=== PATIENT | female | born 1985 | race Caucasian/White ===

== ENCOUNTER 2021-06-28 11:09 | Emergency (ER) | payer MEDICARE, MEDICAID, SELFPAY ==
--- NOTE | 2021-06-28 | ECG_ITS ---
Test Reason : CHEST PAIN Blood Pressure : / mmHG Vent. Rate : 065 BPM Atrial Rate : 065 BPM P-R Int : 146 ms QRS Dur : 068 ms QT Int : 386 ms P-R-T Axes : 046 034 046 degrees QTc Int : 401 ms Normal sinus rhythm with sinus arrhythmia Septal infarct , age undetermined Abnormal ECG When compared with ECG of 09-DEC-2011 20:48, Septal infarct is now Present Referred By: Generic ED Physician Electronically Signed By:ZHANNA STEARNS MD
--- NOTE | ~2021-06-28 | XR_ITS ---
EXAMINATION: XR CHEST CLINICAL INFORMATION: Cough. Pneumonia. COMPARISON: None TECHNIQUE: Frontal view of the chest was obtained. FINDINGS: The lungs are well expanded. There is no focal consolidation, edema, or effusion. No pneumothorax. The cardiomediastinal silhouette is within normal limits. No acute osseous abnormality. XR/XR chest 1V IMPRESSION: Clear lungs.
[2021-06-28 11:32] VITALS: BP 122/83; PULSE 77; RESP 17; TEMP 36.9; O2SAT 98; BMI 27.6
--- NOTE | 2021-06-28 11:40 | ED.CHESTPAIN ---
HPI - Chest Pain General Chief Complaint: Chest Pain Stated Complaint: chest pain 4 days Time Seen by Provider: 06/28/21 11:17 Source: patient Mode of arrival: ambulatory Limitations: no limitations History of Present Illness HPI narrative: 35-year-old female presents to ED for chest pain for the past 4 days. Patient states having coughing with mucus and chills with the chest pain after being exposed to her boyfriend's daughter who was sick before her. Patient denies any leg swelling, calf pain, coughing up blood, pleuritic chest pain, shortness of breath on exertion, recent travel, control use, recent surgery, or any history of blood clots. Patient has been clean without drug use for the past 10 years. Patient states she wanted to get evaluated. Related Data Previous Rx's Medication Instructions Recorded albuterol sulfate 90 mcg/actuation 2 puff INHALATION Q6H PRN #8.5 g 06/28/21 aerosol inhaler prednisone 20 mg tablet 40 mg PO DAILY 5 Days #10 tab 06/28/21 Allergies Allergy/AdvReac Type Severity Reaction Status Date / Time From NOVOCAIN Allergy Unknown ANAPHYLAXIS Uncoded 11/11/19 15:55 Review of Systems Review of Systems: Cough, chills, chest pain Yes all other systems are reviewed and are negative [facility] Past Medical History Medical History (Updated 06/28/21 @ 13:15 by PRECIOUS Boateng) Asthma Pre-eclampsia Social History Social History Advance Directives: No Advance Directives Information Provided: No Physical Exam Vital Signs: Vital Signs: Last Vital Signs Temp 98.5 F 06/28/21 11:32 Pulse 84 06/28/21 13:51 Resp 16 06/28/21 13:51 BP 123/70 06/28/21 13:51 Pulse Ox 98 06/28/21 13:51 BMI result Body Mass Index 27.6 Const: General: cooperative, healthy appearing, comfortable, no acute distress, well developed, alert and awake Orientation/consciousness: patient oriented x3 HEENT: Head: Yes normal to inspection, Yes No palpable skull fracture present, Yes normocephalic, Yes atraumatic and No abrasion Eyes: General: appearance normal, both eyes and all related structures Neck: Neck: Yes normal visual inspection, Yes full ROM, Yes no lymphadenopathy, Yes no meningeal signs, Yes trachea midline, Yes supple, No anterior neck swelling and No tender Chest: Chest palpation & inspection: normal inspection of the chest and normal palpation of entire chest wall Resp: Effort & Inspection: normal respiratory effort and able to speak in complete sentences Auscultation: clear to auscultation bilaterally Cardio: Jugular venous distension: no JVD Heart sounds: S1 normal heart sound present and S2 normal heart sound present GI: Inspection: Yes normal to inspection and No abdominal wall ecchymosis Palpation (GI): Soft to palpation, not firm, nontender, no guarding and not rigid : General: No CVA tenderness and Yes no CVA tenderness Back/Spine/Pelvis: Back: no CVA tenderness, No CVA tenderness and No back tenderness Skin: General skin exam: no rashes or lesions noted and elasticity normal Neuro: General: patient oriented x3, gait normal, no meningeal signs, no focal motor deficits and CN's II-XI intact bilaterally Cranial nerves: Yes CN's II-XII intact bilaterally Extrem: Other: Lower extremities negative for swelling, pitting edema, or calf tenderness. General: Yes normal to inspection and Yes full ROM Psych: Appearance: grossly normal and well ket Course Course Course Narrative: Patient well-appearing. History physical exam likely mild URI but due to patient stating father had heart attack in 40s patient will have EKG cardiac evaluation. Not suspecting PE. SARS and COVID swab ordered. Patient has reproducible chest pain most likely costochondritis will wait for EKG troponin results. Albuterol prednisone ordered. Reevaluation(s) Reevaluation #1: EKG negative STEMI. Chest x-ray negative pneumonia and negative for signs of CHF. COVID influenza A negative. Troponin negative. Diagnosis URI. Patient is safe for discharge. Heart score 0. Perc score is 0. Time: 13:08 MDM - Chest Pain MDM Narrative Medical decision making narrative: URI. Asthma Lab Data Result diagrams: 06/28/21 11:42 06/28/21 11:42 Labs: Lab Results 06/28/21 06/28/21 06/28/21 Range/Units 11:42 11:42 11:42 WBC 9.8 (4.8-10.8) X10*3/uL RBC 4.59 (4.20-5.50) X10*6/uL Hgb 13.5 (12.0-16.0) g/dl Hct 40.4 (37.0-47.0) % MCV 88.0 (80.0-98.0) fL MCH 29.4 (27.0-33.0) pg MCHC 33.4 (31.0-35.0) g/dl RDW 12.6 (11.0-16.0) % Plt Count 225 (160-400) X10*3/uL MPV 9.6 (9.4-12.3) fL Immature Gran % (Auto) 0.2 (0.0-0.4) % Neut % (Auto) 46.2 (45-73) % Lymph % (Auto) 43.2 H (20-40) % Emery % (Auto) 4.5 (2-11) % Eos % (Auto) 5.3 H (0-4) % Baso % (Auto) 0.6 (0-2) % Lymph # (Auto) 4.2 (1.2-4.9) X10*3/uL Emery # (Auto) 0.4 (0.1-1.2) X10*3/uL Eos # (Auto) 0.5 H (0.0-0.4) X10*3/uL Baso # (Auto) 0.1 (0.0-0.2) X10*3/uL Abs Immat Gran (auto) 0.02 (0.00-0.03) X10*3/uL Absolute Neuts (auto) 4.5 (2.0-8.3) x10*3/uL Absolute Nucleated RBC 0.000 (0.0-0.012) X10*3/uL Nucleated RBC % (auto) 0.0 (0.0-0.2) /100WBC PT 12.3 (9.9-13.0) SEC INR 1.1 (0.9-1.1) APTT 35.2 (24.1-38.0) SEC Sodium 137 (135-145) mmol/L Potassium 4.1 (3.3-5.1) mmol/L Chloride 109 H (96-108) mmol/L Carbon Dioxide 20 L (22-29) mmol/L Anion Gap 12 (12-20) BUN 13 (9-16) mg/dL Creatinine 0.74 (0.5-1.4) mg/dL Estim Creat Clear Calc 94.1 Estimated GFR > 60 Random Glucose 89 (60-115) mg/dL Calcium 9.1 (8.4-10.2) mg/dL Total Bilirubin 0.6 (0.0-1.0) mg/dL AST 13 (5-31) U/L ALT 7 (0-31) U/L Alkaline Phosphatase 59 (39-117) U/L Troponin I High Sens (<3.5-17.0) ng/L Total Protein 7.3 (6.5-8.0) g/dL Albumin 4.3 (3.5-5.0) g/dL COVID-19 (LENNY) (Negative) COVID-19 Clin Com Influenza Type A (KELLEN) (Negative) Influenza Type B (KELLEN) (Negative) Influenza A & B Note 06/28/21 06/28/21 06/28/21 Range/Units 11:42 11:42 11:42 WBC (4.8-10.8) X10*3/uL RBC (4.20-5.50) X10*6/uL Hgb (12.0-16.0) g/dl Hct (37.0-47.0) % MCV (80.0-98.0) fL MCH (27.0-33.0) pg MCHC (31.0-35.0) g/dl RDW (11.0-16.0) % Plt Count (160-400) X10*3/uL MPV (9.4-12.3) fL Immature Gran % (Auto) (0.0-0.4) % Neut % (Auto) (45-73) % Lymph % (Auto) (20-40) % Emery % (Auto) (2-11) % Eos % (Auto) (0-4) % Baso % (Auto) (0-2) % Lymph # (Auto) (1.2-4.9) X10*3/uL Emery # (Auto) (0.1-1.2) X10*3/uL Eos # (Auto) (0.0-0.4) X10*3/uL Baso # (Auto) (0.0-0.2) X10*3/uL Abs Immat Gran (auto) (0.00-0.03) X10*3/uL Absolute Neuts (auto) (2.0-8.3) x10*3/uL Absolute Nucleated RBC (0.0-0.012) X10*3/uL Nucleated RBC % (auto) (0.0-0.2) /100WBC PT (9.9-13.0) SEC INR (0.9-1.1) APTT (24.1-38.0) SEC Sodium (135-145) mmol/L Potassium (3.3-5.1) mmol/L Chloride (96-108) mmol/L Carbon Dioxide (22-29) mmol/L Anion Gap (12-20) BUN (9-16) mg/dL Creatinine (0.5-1.4) mg/dL Estim Creat Clear Calc Estimated GFR Random Glucose (60-115) mg/dL Calcium (8.4-10.2) mg/dL Total Bilirubin (0.0-1.0) mg/dL AST (5-31) U/L ALT (0-31) U/L Alkaline Phosphatase (39-117) U/L Troponin I High Sens < 3.5 (<3.5-17.0) ng/L Total Protein (6.5-8.0) g/dL Albumin (3.5-5.0) g/dL COVID-19 (LENNY) Negative (Negative) COVID-19 Clin Com See Note Influenza Type A (KELLEN) Negative (Negative) Influenza Type B (KELLEN) Negative (Negative) Influenza A & B Note See Note ECG Data ECG #1: Interpretation: Normal sinus rhyth Vent rate 65, DC interval 145, QRS duration, QTC 401. EKG negative STEMI Discharge Plan Discharge Clinical Impression: URI (upper respiratory infection), Asthma Patient Disposition: Home, Self-Care Instructions: Chest Pain (ED), Asthma (ED), Costochondritis (ED), Upper Respiratory Infection (ED) Additional Instructions: Return to the ED for any chest pain, shortness of breath, coughing up blood, swelling of lower extremites, calf pain, chest pain on inspiration, dizziness, weakness, intractable fever, or any other concerning symptoms. You will be prescribed with albuterol inhaler and steroids. Prescriptions: New prednisone 20 mg tablet 40 mg PO DAILY 5 Days Qty: 10 0RF albuterol sulfate 90 mcg/actuation HFA aerosol inhaler 2 puff inhalation Q6H PRN (Reason: shortness of breath or wheezing) Qty: 8.5 0RF Stand Alone Forms: Work/School Release Interventions: ED Discharge Assessment Last Done: 06/28/21 13:55 Discharge Date/Time: 06/28/21 13:56 Print Language: Sinhala
[2021-06-28] MEDS: predniSONE 20 MG TABLET 40 MG PO (11:45)
[2021-06-28 11:49] LABS: MANUAL DIFF FLAG NO
[2021-06-28 11:58] LABS: Basophils Absolute Auto 0.1 X10*3/uL (0.0-0.2); Basophils Percent Auto 0.6 % (0-2); Eosinophils Absolute Auto 0.5 X10*3/uL (0.0-0.4); Eosinophils Percent Auto 5.3 % (0-4); Hematocrit 40.4 % (37.0-47.0); Hemoglobin 13.5 g/dl (12.0-16.0); Imm Gran Abs Auto 0.02 X10*3/uL (0.00-0.03); Imm Gran Pct Auto 0.2 % (0.0-0.4); Lymphocytes Absolute Auto 4.2 X10*3/uL (1.2-4.9); Lymphocytes Percent Auto 43.2 % (20-40); Mean Corpuscular HGB Conc 33.4 g/dl (31.0-35.0); Mean Corpuscular Hemoglobin 29.4 pg (27.0-33.0); Mean Platelet Volume 9.6 fL (9.4-12.3); Monocytes Absolute Auto 0.4 X10*3/uL (0.1-1.2); Monocytes Percent Auto 4.5 % (2-11); Neutrophils Absolute Auto 4.5 x10*3/uL (2.0-8.3); Neutrophils Percent Auto 46.2 % (45-73); Platelet Count 225 X10*3/uL (160-400); Red Blood Count 4.59 X10*6/uL (4.20-5.50); Red Cell Distribution Width 12.6 % (11.0-16.0); White Blood Count 9.8 X10*3/uL (4.8-10.8)
[2021-06-28] MEDS: Albuterol/Iprat 2.5/0.5MG 3 ML AMPUL.NEB INHALE (12:01)
[2021-06-28 12:04] VITALS: PULSE 68; RESP 14; O2SAT 98
[2021-06-28 12:06] LABS: INTERNATIONAL NORM RATIO 1.1 (0.9-1.1); Prothrombin Time 12.3 SEC (9.9-13.0)
[2021-06-28 12:08] LABS: Alanine Aminotransferase 7 U/L (0-31); Albumin Level 4.3 g/dL (3.5-5.0); Alkaline Phosphatase 59 U/L (39-117); Anion Gap 12 (12-20); Aspartate Amino Transferase 13 U/L (5-31); Bilirubin Total 0.6 mg/dL (0.0-1.0); Blood Urea Nitrogen 13 mg/dL (9-16); Calcium 9.1 mg/dL (8.4-10.2); Carbon Dioxide 20 mmol/L (22-29); Chloride 109 mmol/L (96-108); Creatinine Clr Calc Pharmacy 94.1; Estimated Glomerular Filt Rate > 60; Glucose Random 89 mg/dL (60-115); Potassium 4.1 mmol/L (3.3-5.1); Sodium 137 mmol/L (135-145); Total Protein 7.3 g/dL (6.5-8.0)
[2021-06-28 12:09] LABS: Partial Thromboplastin Time 35.2 SEC (24.1-38.0)
[2021-06-28 12:13] LABS: Troponin-I High Sensitivity < 3.5 ng/L (<3.5-17.0)
[2021-06-28 12:24] LABS: COVID-19 Test Negative (Negative); Influenza A Negative (Negative); Influenza B2 Negative (Negative)
[2021-06-28 13:51] VITALS: BP 123/70; PULSE 84; RESP 16; O2SAT 98
== END 2021-06-28 13:56 | disposition home or self-care (01) ==
PROVIDERS: Physician Assistant; Emergency Provider Emergency Medicine
DX: J06.9 Acute upper respiratory infection, unspecified (principal); J45.909 Unspecified asthma, uncomplicated; R07.89 Other chest pain; R05.9 Cough, unspecified; R68.83 Chills (without fever); Z20.822 Contact with and (suspected) exposure to COVID-19; Z79.899 Other long term (current) drug therapy
CPT/HCPCS: 71045; 80053; 84484; 85025; 85610; 85730; 87502; 87635; 93005; 94640; 99283

== ENCOUNTER 2022-08-11 19:56 | Emergency (ER) | payer MEDICARE, MEDICAID, SELFPAY ==
--- NOTE | ~2022-08-11 | XR_ITS ---
EXAMINATION: XR CHEST CLINICAL INFORMATION: Chest pain. COMPARISON: Chest radiograph 06/28/2021. TECHNIQUE: Frontal view of the chest was obtained. FINDINGS: No significant abnormality is noted involving the heart, lungs, mediastinum, bony thorax or soft tissues. XR/XR chest 1V IMPRESSION: Unremarkable examination.
--- NOTE | 2022-08-11 19:59 | ECG_ITS ---
Test Reason : GENERIC Blood Pressure : / mmHG Vent. Rate : 080 BPM Atrial Rate : 080 BPM P-R Int : 144 ms QRS Dur : 086 ms QT Int : 382 ms P-R-T Axes : 063 031 032 degrees QTc Int : 440 ms Normal sinus rhythm Normal ECG When compared with ECG of 28-JUN-2021 11:17, No significant change was found Referred By: Generic ED Physician Electronically Signed By:ANA HARTMANN
[2022-08-11 20:15] VITALS: BP 127/73; PULSE 79; RESP 20; TEMP 36.6; O2SAT 99; BMI 29.7
[2022-08-11 20:16] LABS: MANUAL DIFF FLAG NO
--- NOTE | 2022-08-11 20:16 | MHC.EDTECH ---
PATIENT EKG DONE AND WAS READ BY PROVIDER ,BLOOD DRAWN AND SENT TO LAB .
[2022-08-11 20:18] LABS: Basophils Percent Auto 0.3 % (0-2); Eosinophils Absolute Auto 0.3 X10*3/uL (0.0-0.4); Eosinophils Percent Auto 2.6 % (0-4); Hematocrit 37.6 % (37.0-47.0); Hemoglobin 12.4 g/dl (12.0-16.0); Imm Gran Abs Auto 0.02 X10*3/uL (0.00-0.03); Imm Gran Pct Auto 0.2 % (0.0-0.4); Lymphocytes Absolute Auto 4.1 X10*3/uL (1.2-4.9); Lymphocytes Percent Auto 40.9 % (20-40); Mean Corpuscular Hemoglobin 29.5 pg (27.0-33.0); Mean Corpuscular Volume 89.5 fL (80.0-98.0); Mean Platelet Volume 9.4 fL (9.4-12.3); Monocytes Absolute Auto 0.4 X10*3/uL (0.1-1.2); Monocytes Percent Auto 4.4 % (2-11); Neutrophils Absolute Auto 5.2 x10*3/uL (2.0-8.3); Neutrophils Percent Auto 51.6 % (45-73); Platelet Count 235 X10*3/uL (160-400); White Blood Count 10.1 X10*3/uL (4.8-10.8)
[2022-08-11 20:35] LABS: Anion Gap 12 (12-20); Blood Urea Nitrogen 12 mg/dL (9-16); Calcium 9.6 mg/dL (8.4-10.2); Carbon Dioxide 25 mmol/L (22-29); Chloride 109 mmol/L (96-108); Creatinine Clr Calc Pharmacy 90.5; Estimated Glomerular Filt Rate > 60; Glucose Random 72 mg/dL (60-115); Potassium 4.1 mmol/L (3.3-5.1); Sodium 142 mmol/L (135-145)
--- NOTE | 2022-08-11 20:47 | PC.NURSE ---
Assumed care of pt. Pt ambulated to room under own power, no acute distress noted. Pt endorsing intermittent sharp chest pains since this am under L breast, and mid sternal, no change on palpation, no difficulty breathing. Sts has hx of asthma and used emergency inhaler x 2 today with no relief. Pt daily use of Ibuprofen for headaches, 400mg. Pt VSS, assessed as documented. Pending provider assessment.
[2022-08-11 20:49] LABS: Troponin-I High Sensitivity < 2.7 ng/L (<3.5-17.0)
--- NOTE | 2022-08-11 20:51 | ED.CHESTPAIN ---
HPI - Chest Pain General Chief Complaint: Chest Pain Stated Complaint: chest pain Time Seen by Provider: 08/11/22 20:50 Source: patient Mode of arrival: ambulatory Limitations: no limitations History of Present Illness HPI narrative: 36-year-old female who presents emergency department for evaluation of left-sided chest pain. She states that the pain came on gradually last night , she woke up this morning and still had the pain. She states the pain was initially under her left breast and is now moved to her left anterior chest area. The pain is intermittent. The pain is sharp. The pain is worse with movement and worse with breathing. The patient denied fever but states that she had chills over the past 24 hours. She denied rhinorrhea but does have sore throat and a nonproductive cough. She complains of shortness of breath and dyspnea on exertion. The patient is not gone on any long trips, she has not noticed any pain or swelling in her lower extremities, she is not on control pills The patient states that her boyfriend found out that he was HIV positive 1 month prior. Patient states that the last time she had intercourse with her boyfriend was 1 month prior. She did take a home HIV test which was negative. She was seen by her OBGYN 2 weeks prior for an STD workup including HIV but she does not know this result. Related Data Previous Rx's Medication Instructions Recorded albuterol sulfate 90 mcg/actuation 2 puff inhalation Q6H PRN 06/28/21 aerosol inhaler shortness of breath or wheezing #8.5 grams prednisone 20 mg tablet 40 mg PO DAILY 5 days #10 tabs 06/28/21 Allergies Allergy/AdvReac Type Severity Reaction Status Date / Time From NOVOCAIN Allergy Unknown ANAPHYLAXIS Uncoded 11/11/19 15:55 Review of Systems Review of Systems: Yes all other systems are reviewed and are negative [facility] Past Medical History [facility] Narrative: Past medical history: Asthma. Social history: She denies tobacco use but does vape nicotine products 2 times a week. She denies alcohol use. She denies drug use. Medical History Asthma Pre-eclampsia Social History Social History Alcohol intake: never Smoked in Last 30 Days: No Use of substances other than those prescribed or required for medical reasons: No Substance Use Type Other:: vape Advance Directives: No Advance Directives Information Provided: No Physical Exam Vital Signs: Vital Signs: Last Vital Signs Temp 98.1 F 08/11/22 22:28 Pulse 66 08/11/22 22:28 Resp 17 08/11/22 22:28 BP 113/65 08/11/22 22:28 Pulse Ox 98 08/11/22 22:28 O2 Del Method Room Air 08/11/22 22:28 BMI result Body Mass Index 29.7 Const: General: cooperative and no acute distress Orientation/consciousness: oriented to person and oriented to place Limitations: no limitations HEENT: Head: Yes normal to inspection, Yes normocephalic and Yes atraumatic Ears: external ears normal General nose exam: Normal external nose present Face and sinus: Yes normal facial exam Mouth: Normal oral and palatal mucosa present Throat: Yes posterior oropharynx normal Eyes: General: appearance normal, both eyes and all related structures Neck: Neck: Yes normal visual inspection, Yes no lymphadenopathy, Yes trachea midline and Yes supple Chest: Chest palpation & inspection: normal inspection of the chest and normal palpation of entire chest wall Resp: Effort & Inspection: normal respiratory effort and able to speak in complete sentences Auscultation: clear to auscultation bilaterally Cardio: Rate: regular rate Rhythm: regular rhythm Heart sounds: S1 normal heart sound present, S2 normal heart sound present and no murmurs GI: Inspection: Yes normal to inspection Palpation (GI): Soft to palpation, nontender and no guarding Auscultation: normal bowel sounds : General: Yes no CVA tenderness Back/Spine/Pelvis: Back: no CVA tenderness Skin: General skin exam: no rashes or lesions noted Neuro: General: oriented to person and oriented to place Cognition (Neuro): normal cognition Motor exam (neuro): 5/5 motor strength present throughout Extrem: General: Yes normal to inspection Psych: Appearance: grossly normal Speech and movement: Normal speech and movement present Affect: normal affect Attitude: cooperative Medications Administered Discontinued Medications Generic Name Dose Route Start Last Admin Trade Name Freq PRN Reason Stop Dose Admin Ketorolac Tromethamine 60 mg 08/11/22 21:10 08/11/22 21:14 Ketorolac Tromethamine 60 Mg/2 Ml Vial IM 08/11/22 21:11 60 mg ONCE ONE Administration Medical Decision Making Medical Decision Making [facility] Narrative: 36-year-old female who presents emergency department for evaluation of left-sided chest pain pleuritic chest pain which came on gradually last night and is been intermittent, worse with breathing and with movement. Patient is also had chills, sore throat and a nonproductive cough. HIV disease and has an HIV test 2 weeks prior by her OBGYN but does not know her result yet. Patient was PERC negative. Following tests were ordered on the patient, CBC, BMP, troponin, EKG, two view chest x-ray. Patient was ordered to get Toradol 60 mg IM 2307: The patient's laboratory evaluation is unremarkable. Chest x-ray was normal 12 EKG was unremarkable pain Patient's symptoms are consistent with pleurisy most likely caused by URI patient pain. Patient's symptoms improved after IM Toradol. Patient was advised to take Tylenol ibuprofen for pain Differential Diagnosis Differential diagnosis includes was not limited to pneumonia, bronchitis, viral syndrome, pulmonary embolism, pleurisy, musculoskeletal pain, costochondritis Admission/Observation Consideration of admission/observation: Escalation of care including admission/observation considered Lab Data [facility] Lab Attestation statement: I reviewed the patient's lab results. 08/11/22 20:12 08/11/22 20:12 Labs: Lab Results 08/11/22 08/11/22 08/11/22 Range/Units 20:12 20:12 20:12 WBC 10.1 (4.8-10.8) X10*3/uL RBC 4.20 (4.20-5.50) X10*6/uL Hgb 12.4 (12.0-16.0) g/dl Hct 37.6 (37.0-47.0) % MCV 89.5 (80.0-98.0) fL MCH 29.5 (27.0-33.0) pg MCHC 33.0 (31.0-35.0) g/dl RDW 13.0 (11.0-16.0) % Plt Count 235 (160-400) X10*3/uL MPV 9.4 (9.4-12.3) fL Immature Gran % (Auto) 0.2 (0.0-0.4) % Neut % (Auto) 51.6 (45-73) % Lymph % (Auto) 40.9 H (20-40) % [place] % (Auto) 4.4 (2-11) % Eos % (Auto) 2.6 (0-4) % Baso % (Auto) 0.3 (0-2) % Lymph # (Auto) 4.1 (1.2-4.9) X10*3/uL [place] # (Auto) 0.4 (0.1-1.2) X10*3/uL Eos # (Auto) 0.3 (0.0-0.4) X10*3/uL Baso # (Auto) 0.0 (0.0-0.2) X10*3/uL Abs Immat Gran (auto) 0.02 (0.00-0.03) X10*3/uL Absolute Neuts (auto) 5.2 (2.0-8.3) x10*3/uL Absolute Nucleated RBC 0.000 (0.0-0.012) X10*3/uL Nucleated RBC % (auto) 0.0 (0.0-0.2) /100WBC Sodium 142 (135-145) mmol/L Potassium 4.1 (3.3-5.1) mmol/L Chloride 109 H (96-108) mmol/L Carbon Dioxide 25 (22-29) mmol/L Anion Gap 12 (12-20) BUN 12 (9-16) mg/dL Creatinine 0.79 (0.5-1.4) mg/dL Estim Creat Clear Calc 90.5 Estimated GFR > 60 Random Glucose 72 (60-115) mg/dL Calcium 9.6 (8.4-10.2) mg/dL Troponin I High Sens < 2.7 (<3.5-17.0) ng/L Independent Interpretation I performed an independent interpretation of an: Plain X-Ray Interpretation: Interpretation the patient chest x-ray is as follows: No acute disease My independent interpretation patient's 12 EKG is as follows: Normal sinus rhythm with a rate of 80, normal CA interval, QRS duration QTC interval, no ST segment elevation, no ST segment depression, no PACs, no PVCs, no T-wave abnormality when compared to EKG dated 06/28/2021 no acute change Radiology Impression Discussion of test interpretation with radiology: I have reviewed the radiologist's reading. Radiologist Impression: XR chest 1V IMPRESSION: Unremarkable examination. Dictated By:Chelly Britt Discharge Plan Discharge Clinical Impression: Pleurisy URI (upper respiratory infection) Qualifiers: URI type: unspecified viral URI Qualified Code(s): J06.9 - Acute upper respiratory infection, unspecified Patient Disposition: Home, Self-Care Instructions: Pleurisy (ED), Upper Respiratory Infection (ED) Additional Instructions: Your blood work was normal pain Your EKG was normal Your chest x-ray was normal. Your symptoms are consistent with a viral respiratory infection and pleurisy Take ibuprofen 200 mg pills, 2 pills every 6 hours as needed for pain. Take Tylenol (acetaminophen) 500 mg pills, 2 pills every 6 hours as needed for pain. Follow-up with your doctor in 2 days. Please return to the emergency department if your symptoms get worse or if you develop any symptoms that are concerning to you. Prescriptions: No Action prednisone 20 mg tablet 40 mg PO DAILY 5 Days Qty: 10 0RF albuterol sulfate 90 mcg/actuation HFA aerosol inhaler 2 puff inhalation Q6H PRN (Reason: shortness of breath or wheezing) Qty: 8.5 0RF
[2022-08-11] MEDS: Ketorolac Tromethamine 60 MG/2 ML VIAL IM (21:14)
[2022-08-11 22:28] VITALS: BP 113/65; PULSE 66; RESP 17; TEMP 36.7; O2SAT 98
[2022-08-11 23:19] VITALS: BP 111/65; PULSE 63; RESP 16; TEMP 36.8; O2SAT 98
--- NOTE | 2022-08-11 23:20 | MHC.EDTECH ---
THIS PCT ASSUMED CARE OF PT AT 2300 ,VITALS SIGN TAKEN PT WAITING FOR DISCHARGED PAPER WORK .
== END 2022-08-11 23:26 | disposition home or self-care (01) ==
PROVIDERS: Emergency Provider Emergency Medicine Emergency Medical Services
DX: J06.9 Acute upper respiratory infection, unspecified (principal); R09.1 Pleurisy
CPT/HCPCS: 36415; 71045; 80048; 84484; 85025; 93005; 96372; 99284; 99285; J1885

== ENCOUNTER 2022-08-17 16:47 | Emergency (ER) | payer MEDICARE, MEDICAID, SELFPAY ==
--- NOTE | 2022-08-17 16:57 | PC.NURSE ---
PT REFUSING EKG AT THIS TIME.
--- NOTE | 2022-08-17 16:57 | MHC.EDTECH ---
this pct attempted to obtain an EKG patient refused [place]
[2022-08-17 17:11] VITALS: BP 135/86; PULSE 83; RESP 16; TEMP 36.5; O2SAT 98; BMI 27.2
--- NOTE | 2022-08-17 17:12 | ED.CHESTPAIN ---
HPI - Chest Pain General Chief Complaint: Chest Pain Stated Complaint: chest pain,sob Source: patient Mode of arrival: ambulatory Limitations: no limitations History of Present Illness HPI narrative: Patient is a 36-year-old female who presents to the emergency department for multiple complaints. She reports that she Saw her PCP for a physical 2 days ago, was having symptoms. She checked her portal today and noted urine culture grew 10,000-49,000 CFU mixed growth of urogenital luis with beta strep group B, she has been experiencing urinary urgency with small amounts of voiding. She is also reporting chest pain and shortness of breath, however this is not new and has not changed in any way, has been present since her prior department visit 6 days ago 08/11/2022 for which she was diagnosed with pleurisy in relation to viral upper respiratory infection. Related Data Previous Rx's Medication Instructions Recorded albuterol sulfate 90 mcg/actuation 2 puff inhalation Q6H PRN 06/28/21 aerosol inhaler shortness of breath or wheezing #8.5 grams prednisone 20 mg tablet 40 mg PO DAILY 5 days #10 tabs 06/28/21 cefuroxime axetil 250 mg tablet 250 mg PO BID #10 tabs 08/17/22 Allergies Allergy/AdvReac Type Severity Reaction Status Date / Time From NOVOCAIN Allergy Unknown ANAPHYLAXIS Uncoded 08/17/22 17:10 Review of Systems Review of Systems: Constitutional: No weight loss, fever, chills, weakness or fatigue. Skin: No rash or itching. Cardiovascular: Positive chest pain. No palpitations or pedal edema. Respiratory: Positive shortness of breat Gastrointestinal: No anorexia, nausea, vomiting or diarrhea. No abdominal pain or blood in stool. Genitourinary: Positive burning micturition. No urinary urgency. Musculoskeletal: No muscle pain, back pain, joint pain or stiffness. Psychiatric: No depression or anxiety. Yes all other systems are reviewed and are negative PMFSH Past Medical History Attestation statement: The following information was validated with the patient. Source: old records reviewed Medical History Asthma Pre-eclampsia Social History Social History Alcohol intake: never Physical Exam Vital Signs: Appearance: Alert.?Oriented to person, place and time. No acute distress.?Normal affect. Eyes: Pupils equal, round and reactive to light.? ENT: Pharynx normal.?? Neck: Normal inspection.? Neck supple.?? CVS: Heart sounds normal. Normal heart rate and rhythm.? Pulses normal.?? Respiratory: No respiratory distress.? Lung sounds clear to auscultation bilaterally?? Abdomen: Soft and non-tender. Normoactive bowel sounds. Skin: Skin warm and dry.? Normal skin color.? Extremities: No lower extremity edema.? No calf ttp? Neuro: Moves all extremities spontaneously. Sensation intact bilaterally. . No focal neuro deficits. Ambulates with normal steady gait. Course Course Course Narrative: Patient is a 36-year-old female who presents to the emergency department for multiple complaints. She reports that she Saw her PCP for a physical 2 days ago, was having symptoms. She checked her portal today and noted urine culture grew 10,000-49,000 CFU mixed growth of urogenital luis with beta strep group B, she has been experiencing urinary urgency with small amounts of voiding. She is also reporting chest pain and shortness of breath, however this is not new and has not changed in any way, has been present since her prior department visit 6 days ago 08/11/2022 for which she was diagnosed with pleurisy in relation to viral upper respiratory infection. Medical Decision Making Medical Decision Making MDM Narrative: Patient is a 36-year-old female presenting to emergency department for multiple complaints. She continues to report chest pain and shortness of breath since her recent diagnosis of pleurisy secondary to viral infection, this remains unchanged however, she expresses concern about continued pain, however it does respond to acetaminophen and ibuprofen, reassurance provided. At this time I do not suspect ACS, pneumonia, pneumothorax, pulmonary embolism, PERC negative. She is experiencing genitourinary symptoms concerning for urinary tract infection, upon review of results from her patient portal, urine culture may be part to urogenital contamination, however given presence group B strep in symptoms will treat has urinary tract infection, prescription for cefuroxime sent to patient's pharmacy. Not consistent with pyelonephritis at this time. Reviewed worrisome signs and symptoms that would warrant re-evaluation in the emergency department. Advised outpatient follow-up with primary care provider. All questions answered. Stable for discharge. Differential Diagnosis Differential Diagnoses: The differential diagnosis associated with the presentation includes (As noted above) External Record Review External record reviewed: Prior outpatient labs (I reviewed outpatient labs from patient's electronic portal on her phone) Tests considered The following testing was considered but not selected: I considered chest x-ray, EKG, serum labs. Given recent workup and diagnosis of pleurisy, do not feel as though repeat serum labs or chest x-ray are warranted at this time as there is no acute change in her pain. She was offered an EKG given her persistent chest pain however she declined. Prescription Management I considered prescription management with: Antibiotic Discharge Plan Discharge Clinical Impression: Urinary tract infection Patient Disposition: Home, Self-Care Instructions: Urinary Tract Infection in Women (DC) Additional Instructions: A prescription for antibiotic was sent to your pharmacy for treatment of urinary tract infection, as discussed the urine culture may be contaminated, however, given your symptoms we are treating you. Please follow-up with your primary care provider in 2 days. You may return to the emergency department any new or worsening symptoms or concerns. This includes but is not limited to fevers, chills, nausea, vomiting, abdominal pain, back pain, inability to urinate. Prescriptions: New cefuroxime axetil 250 mg tablet 250 mg PO BID Qty: 10 0RF No Action prednisone 20 mg tablet 40 mg PO DAILY 5 Days Qty: 10 0RF albuterol sulfate 90 mcg/actuation HFA aerosol inhaler 2 puff inhalation Q6H PRN (Reason: shortness of breath or wheezing) Qty: 8.5 0RF Discharge Date/Time: 08/17/22 17:33
== END 2022-08-17 17:33 | disposition home or self-care (01) ==
PROVIDERS: Emergency Provider Internal Medicine; PCP Internal Medicine
DX: N39.0 Urinary tract infection, site not specified (principal); R06.02 Shortness of breath
CPT/HCPCS: 99282; 99283

== ENCOUNTER 2024-05-09 18:05 | Emergency (ER) | payer MEDICARE, MEDICAID, SELFPAY ==
--- NOTE | ~2024-05-09 | XR_ITS ---
CLINICAL HISTORY: right sided chest pain 2 view chest x-ray Comparison: CR/NM/SR - XR CHEST 1V - 08/11/22 21:28 EDT Findings: No consolidation or effusion. Normal size heart. No acute fracture. IMPRESSION: 1. No acute findings. This document has been electronically signed by: Anjum Toledo MD on 05/09/2024 19:17:57
--- NOTE | 2024-05-09 18:11 | ECG_ITS ---
Test Reason : CP Blood Pressure : */* mmHG Vent. Rate : 86 BPM Atrial Rate : 86 BPM P-R Int : 134 ms QRS Dur : 78 ms QT Int : 368 ms P-R-T Axes : 58 21 41 degrees QTcB Int : 440 ms Normal sinus rhythm Normal ECG When compared with ECG of 11-Aug-2022 19:59, No significant change was found Referred By: Generic ED Physician Electronically Signed By: Pan Gage
[2024-05-09 18:17] VITALS: BP 151/92; PULSE 85; RESP 16; TEMP 36.7; O2SAT 98; BMI 28.0
--- NOTE | 2024-05-09 18:18 | ED_ITS ---
HPI - Chest Pain General Chief Complaint: Chest Pain Stated Complaint: chest pain going to the back/abd pain Time Seen by Provider: 05/09/24 19:23 Source: patient Mode of arrival: ambulatory Limitations: no limitations History of Present Illness ED Provider: Dru Bass DO HPI narrative: 38-year-old female with a past medical history of asthma, ADHD and previous diagnosis of pleurisy presents to the emergency department for chronic episodic anterior and posterior chest wall pain that has been ongoing for a couple of years but somewhat worsened yesterday. Patient states the pain is worse with deep breaths as well as certain position changes. She initially reported abdominal pain but denies abdominal pain during my evaluation, denies vomiting, diarrhea, exertional symptoms, lower extremity pain or swelling, previous history of DVT or PE, cancer history, recent surgeries, dizziness or passing out episodes. Patient also reports chronic intermittent palpitations which has not been evaluated with Holter monitor in the past. She drinks caffeine daily taking 1 soda. She denies nicotine use or illicit drug use. She saw her manufacturing engineering technologist recently with no changes. Related Data Previous Rx's ?Medication ?Instructions ?Recorded albuterol sulfate 90 mcg/actuation 2 puff inhalation Q6H PRN 06/28/21 aerosol inhaler shortness of breath or wheezing #8.5 grams prednisone 20 mg tablet 40 mg (2 x 20 mg) PO DAILY 5 days 06/28/21 #10 tabs cefuroxime axetil 250 mg tablet 250 mg PO BID #10 tabs 08/17/22 Allergies Allergy/AdvReac Type Severity Reaction Status Date / Time From NOVOCAIN Allergy Unknown ANAPHYLAXIS Uncoded 05/09/24 18:21 Review of Systems 2 Review of Systems: Yes all other systems are reviewed and are negative PMFSH Past Medical History Medical History Asthma Pre-eclampsia Social History Social History Alcohol intake: never Advance Directives: No Advance Directives Information Provided: Yes Physical Exam 2 Vital Signs: Vital Signs: Last Vital Signs Temp 99.0 F 05/09/24 20:35 Pulse 84 05/09/24 20:35 Resp 18 05/09/24 20:35 BP 128/84 05/09/24 20:35 Pulse Ox 98 05/09/24 20:35 O2 Del Method Room Air 05/09/24 20:35 BMI result Body Mass Index 28.0 Constitutional: ?Alert, oriented, speaking in full sentences HEENT: ?Normocephalic, atraumatic. ?Moist mucous membranes Eyes: ?PERRL, EOMI Neck: ?Supple, nontender Chest: ?No chest wall tenderness Respiratory: ?Lungs clear to auscultation, no increased work of breathing Cardio: ?Regular rate and rhythm, no murmur, 2+ radial and DP pulses symmetrically GI: ?Soft, nondistended, nontender Back: ?Normal range of motion, nontender Skin: ?No rash, no lesions Neuro: ?Alert and oriented to person, place and time, moves all 4 extremities, no focal deficits Extremities: ?No swelling or tenderness, full range of motion Psych: ?Calm, alert and cooperative, appropriate behavior Course Course Course Narrative: This is a Rapid Medical Examination (RME) performed by Rosmery Ventura PA-C in triage. Full HPI, ROS, assessment and treatment plan per primary provider in the Main ED. 38 yo female with history of asthma presents to the ER for evaluation of right sided chest pain that started yesterday, worse with movement or breathing. she reports not feeling well with central abdominal pain & nausea as well. no relief of pain and SOB with inhaler. saturating well on RA. Plan: EKG, labs, viral swab, CXR Medical Decision Making Medical Decision Making MDM Narrative: This patient presents with chest pain, with symptoms suggestive of noncardiac chest pain. History without high risk features (e.g., not substernal, no exertional component, not relieved with rest). The patient is describing pleuritic chest pain which has been ongoing for a couple of years. She is also describing palpitations. Her chest x-ray, ECG and blood work including troponin are unremarkable today. Given the pain has been present for a long time, her presentation does not warrant further testing today including repeat troponins. She had no Minimal CAD risk factors. Exam without evidence of volume overload. EKG without signs of active ischemia. HEART score: 0. Presentation not consistent with acute PE (Wells low risk / PERC negative), pneumothorax, thoracic arotic dissection, cardiac effusion or tamponade. The patient appears comfortable during my evaluation, repeat vital signs unremarkable without hypoxia, working diagnosis of chronic idiopathic pleurisy. I recommended follow up with primary care provider for discussion about Holter monitor due to palpitations as well as cutting out caffeine to evaluate if this improves her symptoms. I provided clear and strict return precautions and the patient agrees with plan. Lab Data MDM Lab Attestation statement: I reviewed the patient's lab results. Unremarkable CBC and chemistry including magnesium level and troponin as well as lipase, unremarkable liver function tests. Negative respiratory swab. 05/09/24 18:43 05/09/24 18:43 Labs: Lab Results 05/09/24 05/09/24 Range/Units 18:43 19:50 WBC 10.7 (4.8-10.8) X10*3/uL RBC 4.54 (4.20-5.50) X10*6/uL Hgb 13.5 (12.0-16.0) g/dl Hct 39.4 (37.0-47.0) % MCV 86.8 (80.0-98.0) fL MCH 29.7 (27.0-33.0) pg MCHC 34.3 (31.0-35.0) g/dl RDW 13.4 (11.0-16.0) % Plt Count 231 (160-400) X10*3/uL MPV 8.8 L (9.4-12.3) fL Immature Gran % (Auto) 0.3 (0.0-0.4) % Neut % (Auto) 79.1 H (45-73) % Lymph % (Auto) 15.8 L (20-40) % [place] % (Auto) 3.6 (2-11) % Eos % (Auto) 1.0 (0-4) % Baso % (Auto) 0.2 (0-2) % Lymph # (Auto) 1.7 (1.2-4.9) X10*3/uL [place] # (Auto) 0.4 (0.1-1.2) X10*3/uL Eos # (Auto) 0.1 (0.0-0.4) X10*3/uL Baso # (Auto) 0.0 (0.0-0.2) X10*3/uL Abs Immat Gran (auto) 0.03 (0.00-0.03) X10*3/uL Absolute Neuts (auto) 8.5 H (2.0-8.3) x10*3/uL Absolute Nucleated RBC 0.000 (0.0-0.012) X10*3/uL Nucleated RBC % (auto) 0.0 (0.0-0.2) /100WBC Sodium 140 (135-145) mmol/L Potassium 3.9 (3.3-5.1) mmol/L Chloride 109 H (96-108) mmol/L Carbon Dioxide 23 (22-29) mmol/L Anion Gap 12 (12-20) BUN 14 (9-16) mg/dL Creatinine 0.82 (0.5-1.4) mg/dL Estim Creat Clear Calc 83.1 Estimated GFR > 60 Random Glucose 94 (60-115) mg/dL Calcium 8.6 D (8.4-10.2) mg/dL Magnesium 1.8 (1.6-2.6) mg/dL Total Bilirubin 0.6 (0.0-1.0) mg/dL Direct Bilirubin 0.2 (0.0-0.5) mg/dL AST 16 (5-31) U/L ALT 9 (0-31) U/L Alkaline Phosphatase 63 (39-117) U/L Troponin I High Sens < 2.7 (<3.5-17.0) ng/L Total Protein 7.2 (6.5-8.0) g/dL Albumin 4.3 (3.5-5.0) g/dL Lipase 17 (8-78) U/L Urine Color Dark Yellow Urine Appearance Clear Urine pH 6.5 (5.0-9.0) Ur Specific [place] >= 1.030 H (1.005-1.025) Urine Protein 30 (1+) H (Neg-Trace) mg/dL Urine Glucose (UA) Negative (Negative) mg/dL Urine Ketones 15 (Negative) mg/dL Urine Blood Negative (Negative) Urine Nitrite Negative (Negative) Ur Leukocyte Esterase Negative (Negative) Urine RBC 0-2 (0-2) /HPF Urine WBC 0-5 (0-5) /HPF Ur Squamous Epith Cells 11-20 (0-2) /HPF Urine Bacteria 1+ (None Seen) Hyaline Casts 0-2 (0-2) /LPF Urine Test NEGATIVE (NEGATIVE) Influenza Type A (PCR) NEGATIVE (Negative) Influenza Type B (PCR) NEGATIVE (Negative) RSV RNA Qual (PCR) NEGATIVE (Negative) SARS-CoV-2 RNA (RT-PCR) NEGATIVE (Negative) Independent Interpretation I performed an independent interpretation of an: EKG and Plain X-Ray (Chest x- ray per my independent interpretation shows no acute cardiopulmonary abnormalities.) Interpretation: Normal sinus rhythm at 86 beats per minute, unremarkable intervals, normal axis, no diagnostic ST or T-wave abnormalities, no prolonged QTC, no signs of WPW or Brugada, no signs of hypertrophic cardiomyopathy, compared to prior dated 08/11/2022 there are no significant changes. Discharge Plan Discharge Clinical Impression: Chest pain Qualifiers: Chest pain type: pleurodynia Qualified Code(s): R07.81 - Pleurodynia Patient Disposition: Home, Self-Care Instructions: Chest Pain (ED) Additional Instructions: You have been evaluated for chest pain with unremarkable workup. As discussed, we recommend speaking to your doctor about applying a Holter monitor to evaluate your heart rhythm for at least a couple of weeks due to your history of palpitations. Also please see if your symptoms improve after stopping all caffeine. Please be aware that if your condition changes or worsens in any way while you are at home, you should return to the emergency department immediately for further care.? This is especially true for worsening / recurrent pain, shortness of breath, vomiting, sweating, palpitations, lightheadedness or passing out.? These may be signs of an emergency condition and you should call 911 if these symptoms occur. Prescriptions: No Action prednisone 20 mg tablet 40 mg PO DAILY 5 Days Qty: 10 0RF albuterol sulfate 90 mcg/actuation HFA aerosol inhaler 2 puff inhalation Q6H PRN (Reason: shortness of breath or wheezing) Qty: 8.5 0RF cefuroxime axetil 250 mg tablet 250 mg PO BID Qty: 10 0RF Interventions: ED Discharge Assessment Last Done: 05/09/24 20:35 Discharge Date/Time: 05/09/24 20:35 Print Language: Azeri
[2024-05-09 18:54] LABS: Basophils Percent Auto 0.2 % (0-2); Eosinophils Absolute Auto 0.1 X10*3/uL (0.0-0.4); Hematocrit 39.4 % (37.0-47.0); Hemoglobin 13.5 g/dl (12.0-16.0); Imm Gran Abs Auto 0.03 X10*3/uL (0.00-0.03); Imm Gran Pct Auto 0.3 % (0.0-0.4); Lymphocytes Absolute Auto 1.7 X10*3/uL (1.2-4.9); Lymphocytes Percent Auto 15.8 % (20-40); MANUAL DIFF FLAG NO; Mean Corpuscular HGB Conc 34.3 g/dl (31.0-35.0); Mean Corpuscular Hemoglobin 29.7 pg (27.0-33.0); Mean Corpuscular Volume 86.8 fL (80.0-98.0); Mean Platelet Volume 8.8 fL (9.4-12.3); Monocytes Absolute Auto 0.4 X10*3/uL (0.1-1.2); Monocytes Percent Auto 3.6 % (2-11); Neutrophils Absolute Auto 8.5 x10*3/uL (2.0-8.3); Neutrophils Percent Auto 79.1 % (45-73); Platelet Count 231 X10*3/uL (160-400); Red Blood Count 4.54 X10*6/uL (4.20-5.50); Red Cell Distribution Width 13.4 % (11.0-16.0); White Blood Count 10.7 X10*3/uL (4.8-10.8)
[2024-05-09 19:15] VITALS: BP 141/88; PULSE 84; RESP 18; TEMP 36.8; O2SAT 99
--- NOTE | 2024-05-09 19:16 | MHC.EDTECH ---
This tech took over care of pt at this time, patient placed on the director of cardiac rehabilitation, vitals taken, pt ambulated top the bathroom with a steady gait,attempting to give a urine sample at this time.
[2024-05-09 19:23] LABS: Alanine Aminotransferase 9 U/L (0-31); Albumin Level 4.3 g/dL (3.5-5.0); Alkaline Phosphatase 63 U/L (39-117); Anion Gap 12 (12-20); Aspartate Amino Transferase 16 U/L (5-31); Bilirubin Direct 0.2 mg/dL (0.0-0.5); Bilirubin Total 0.6 mg/dL (0.0-1.0); Blood Urea Nitrogen 14 mg/dL (9-16); Calcium 8.6 mg/dL (8.4-10.2); Carbon Dioxide 23 mmol/L (22-29); Chloride 109 mmol/L (96-108); Creatinine Clr Calc Pharmacy 83.1; Estimated Glomerular Filt Rate > 60; Glucose Random 94 mg/dL (60-115); Lipase 17 U/L (8-78); Magnesium 1.8 mg/dL (1.6-2.6); Potassium 3.9 mmol/L (3.3-5.1); Sodium 140 mmol/L (135-145); Total Protein 7.2 g/dL (6.5-8.0)
[2024-05-09 19:31] LABS: Troponin-I High Sensitivity < 2.7 ng/L (<3.5-17.0)
[2024-05-09 19:41] LABS: Influenza A PCR NEGATIVE (Negative); Influenza B PCR NEGATIVE (Negative); Resp Syncy Virus RNA Qual PCR NEGATIVE (Negative); SARS COV2 PCR INHOUSE NEGATIVE (Negative)
--- NOTE | 2024-05-09 19:45 | MHC.EDTECH ---
Urine sample obtained and sent to lab
[2024-05-09 20:04] LABS: Appearance Urine Clear; Color Urine Dark Yellow; Glucose Urine UA Negative (Negative); Leukocyte Esterase Urine Negative (Negative); Nitrite Urine Negative (Negative); PH 6.5 (5.0-9.0); Specific Gravity - Urine >= 1.030 (1.005-1.025); UMIC TRIGGER UACC YES; UPreg QC Valid YES; Urine Blood Negative (Negative); Urine Ketones 15 mg/dL (Negative); Urine Pregnancy NEGATIVE (NEGATIVE); Urine Protein 30 (1+) mg/dL (Neg-Trace)
[2024-05-09 20:06] LABS: Bacteria Urine 1+ (None Seen); Hyaline Casts Urine 0-2 /LPF (0-2); RBC Urine 0-2 /HPF (0-2); WBC Urine 0-5 /HPF (0-5)
[2024-05-09 20:31] VITALS: BP 128/84; PULSE 84; RESP 18; TEMP 37.2; O2SAT 98
[2024-05-09 20:35] VITALS: BP 128/84; PULSE 84; RESP 18; TEMP 37.2; O2SAT 98
== END 2024-05-09 20:35 | disposition home or self-care (01) ==
PROVIDERS: Physician Assistant; Emergency Provider Emergency Medicine; PCP Internal Medicine
DX: R07.81 Pleurodynia (principal); J45.909 Unspecified asthma, uncomplicated; Z03.818 Encounter for observation for suspected exposure to other biological agents ruled out
CPT/HCPCS: 0241U; 36415; 71046; 80048; 80076; 81001; 81003; 81025; 83690; 83735; 84484; 85025; 93005; 99283; 99284

== ENCOUNTER → 2024-05-09 18:11 | Outpatient (BNV) | payer MEDICARE, MEDICAID, SELFPAY | PROVIDERS: Emergency Provider Emergency Medicine; PCP Internal Medicine; Visit Provider Internal Medicine Cardiovascular Disease | DX: R07.9 Chest pain, unspecified (principal) | CPT/HCPCS: 93010 ==

== ENCOUNTER → 2024-05-09 18:20 | Outpatient (BNV) | payer MEDICARE, MEDICAID, SELFPAY | PROVIDERS: Emergency Provider Emergency Medicine; PCP Internal Medicine; Visit Provider Student in an Organized Health Care Education/Training Program | DX: R07.9 Chest pain, unspecified (principal) | CPT/HCPCS: 71046 ==